=== PATIENT | female | born 1970 | race Caucasian/White ===

== ENCOUNTER 2018-08-28 09:14 | Emergency (ER) | payer OTHER, SELFPAY ==
[2018-08-28] VITALS (45 sets, daily range): BP systolic 95–133; BP diastolic 70–96; PULSE 45–69; RESP 0–22; TEMP 36.8; O2SAT 96–100
--- NOTE | 2018-08-28 09:25 | DI.RAD_ITS ---
SYMPTOM/DIAGNOSIS: CHEST PAIN, PALPITATIONS PA AND LATERAL CHEST: There are no prior comparison exams. The cardiac and mediastinal contours have a normal appearance. There is mild bi-apical pleural scarring. The lungs otherwise appear clear. No infiltrate, effusion or pneumothorax is seen. IMPRESSION: No acute abnormality.
[2018-08-28 09:35] LABS: Abs Immature Grans 0.01 k/cumm (0.0-0.09); Absolute Basophil Count 0.05 k/cumm (0.0-0.2); Absolute Eosinophil Count 0.24 k/cumm (0.0-0.7); Absolute Lymphocyte Count 1.53 k/cumm (1.2-3.4); Absolute Monocyte Count 0.47 k/cumm (0.11-0.7); Absolute Neutrophil Count 1.96 k/cumm (1.2-6.7); Basophils % 1.2; Eosinophils % 5.6; HCT 37.9 % (36.0-46.0); HGB 13.1 g/dL (12.0-15.5); Immature Grans % 0.2; Lymphocytes % 35.9; Mean Corp. HGB Concentration 34.6 g/dL (32.0-36.0); Mean Corpuscular Hemoglobin 33.4 pg (27.0-33.0); Mean Corpuscular Volume 96.7 fL (80-95); Mean Platelet Volume 8.7 fL (8.0-11.0); Neutrophils % 46.1; Platelet Count 359 x1000/uL (130-400); RBC 3.92 m/cumm (4.00-5.20); RBC Distribution Width 11.5 % (11.7-14.6); White Blood Cell Count 4.26 k/cumm (4.4-10.8)
[2018-08-28 09:52] LABS: ALT 27 U/L (12-78); AST 20 U/L (15-37); Albumin 3.8 g/dL (3.4-5.0); Alkaline Phosphatase 57 U/L (46-116); Anion Gap 9.4 mmol/L (3-11); BUN 16 mg/dL (7-18); Bilirubin, Total 0.6 mg/dL (0.2-1.0); CO2 25.6 mmol/L (21.0-32.0); CREATININE 0.91 mg/dL (0.55-1.02); Calcium 9.2 mg/dL (8.5-10.1); Chloride 100 mmol/L (98-107); Glucose 96 mg/dL (70-100); Magnesium 1.9 mg/dL (1.8-2.4); Potassium 4.2 mmol/L (3.5-5.1); Sodium 135 mmol/L (136-145); Total Protein 7.5 g/dL (6.4-8.2)
[2018-08-28 09:53] LABS: Troponin I < 0.02 ng/mL (0.00-0.06)
--- NOTE | 2018-08-28 10:16 | DI.VRAD_ITS ---
EXAM: XR Chest, 2 Views EXAM DATE/TIME: 08/28/2018 9:26 AM CLINICAL HISTORY: 48 years old, female; Signs and symptoms; Other: Palpitations TECHNIQUE: Imaging protocol: XR of the chest, 2 views. COMPARISON: No relevant prior studies available. FINDINGS: Lungs: Moderately hyperaerated lungs consistent with deep inspiratory effort vs significant reactive airway disease vs moderate COPD . Pleural space: Unremarkable. No pleural effusion. No pneumothorax. Heart/Mediastinum: Unremarkable. No cardiomegaly. Bones/joints: Unremarkable. IMPRESSION: Moderately hyperaerated lungs consistent with deep inspiratory effort vs significant reactive airway disease vs moderate COPD . Dictated and Authenticated by: Eliezer Pisano MD. Ordering:ALFREDO López MD
--- NOTE | 2018-08-28 10:22 | W.ED.GENAD ---
Discharge Plan Disposition Patient Disposition: HOME Condition: Good Discharge Details Chief Complaint: Palpitatns Clinical Impression: Palpitations, Atypical chest pain, Chronic chest pain Primary Care Provider: Caitlin,Local ED Provider: Maribel Contreras Home Meds and New Rx's Prescriptions: Continued propranolol 20 mg Tablet 20 mg PO DAILY RF: 0 norethindrone-e.estradiol-iron [Blisovi 24 Fe] 1 mg-20 mcg (24)/75 mg (4) Tablet 1 tab PO DAILY RF: 0 Discharge Instructions Instructions: Chest Pain (ED), Palpitations (ED), Chronic Pain (ED), Anxiety (ED) Additional Instructions: Your symptoms may or may not be due to anxiety. Your blood work and EKGs were reassuring that this does not appear like an acute cardiac etiology at this time. Return the zio patch monitor to the hospital as directed. Follow-up with your primary care doctor for reevaluation and for discussion regarding medication for possible anxiety. Also discuss with your doctor the plan for continuing propranolol or changing to a different medication for your hypertension. Hold on further propranolol if your heart rate is below 60. Take the ativan you were given to help with any further feelings of palpitations. Return immediately to the emergency department any worsening or new concerning symptoms. Discharge Data Discharge Physician: Maribel Contreras Medical Decision Making 48-year-old female with a history of hypertension on propranolol, and endometrial ablation who presents for palpitations, tachycardia, chest tightness and shortness of breath that awoke her from sleep at 330 this morning. She is visiting here from [place]. She traveled 3 hours yesterday. Her last dose of propranolol was 2 days ago as she forgot her pills at home. She denies leg pain or swelling, recent surgeries. Symptoms are much improved now, chest tightness 2/10. Vitals within normal limits. EKG notes a rate of 62, sinus, T wave inversion in lead III and V3. No acute ST findings. Differential diagnosis includes AR, PE, anxiety, electrolyte abnormality, arrhythmia. Considering patient's age and history, will do a cardiac workup, d-dimer, and chest x-ray and will give patient a dose of her propranolol now. Able to obtain records from [facility] from June 2018 which noted that patient had negative serial EKGs and negative cardiac enzymes in addition to a negative myocardial stress test on 06/16/18 which reported Impression: No definite scintigraphic evidence for stress-induced ischemia on orthogonal views. Ejection fraction calculated greater than 70%, within normal limits, with unremarkable wall motion on the gated study. Review of EKG from 06/16/18 notes T wave inversion in lead III and V3 which is seen in today's EKG so no new acute findings on today's EKG. 1115 --labs and imaging reviewed and unremarkable. D-dimer negative. Troponin negative. Chest x-ray negative for acute findings. Patient states she has been having this intermittent palpitations, chest tightness for the past 6 months. She states she has had similar episodes as this morning occurring more frequently over the past 2-3 months. Patient denies any relief with the propranolol. Will give a dose of Ativan. Discussed with patient that as her symptoms have been chronic, and she had a recent negative stress test, plan for second troponin with discharge home with zio patch may be most appropriate as she is agreeable. Will give a dose of Ativan p.o. now. 1315 --second troponin negative. Patient feels much better and denies any complaints of palpitations, chest tightness or shortness of breath. Patient is requesting to go home. Repeat EKG no acute change. The heart rate on repeat EKG was noted to be 49. Further monitoring of the heart rate noted to be in the high 50s. This is likely due to the dose of propranolol here. Patient had zio patch placed prior to discharge. Discussed with patient that her symptoms could possibly be due to anxiety, but she is recommended to follow-up with her primary care doctor for further evaluation of this. Patient requested 1 dose of propranolol for tomorrow night. She is instructed to hold this dose if her heart rate is less than 60. Will send home with 3 tabs of Ativan. She is instructed she is to call her primary care doctor on Thursday morning for reevaluation, and to return to the ER with any concerns. Medical Records Medical records reviewed: Yes I reviewed the patient's medical records. Imaging Data Radiologic Study: Radiologist's impression: XR Chest, 2 Views EXAM DATE/TIME: 08/28/2018 9:26 AM FINDINGS: Lungs: Moderately hyperaerated lungs consistent with deep inspiratory effort vs significant reactive airway disease vs moderate COPD . Pleural space: Unremarkable. No pleural effusion. No pneumothorax. Heart/Mediastinum: Unremarkable. No cardiomegaly. Bones/joints: Unremarkable. IMPRESSION: Moderately hyperaerated lungs consistent with deep inspiratory effort vs significant reactive airway disease vs moderate COPD . Lab Data Lab results reviewed: Yes I reviewed the patient's lab results. Laboratory Tests Range/Units 08/28/18 08/28/18 08/28/18 09:20 09:30 09:30 WBC (4.4-10.8) k/cumm 4.26 L RBC (4.00-5.20) m/cumm 3.92 L Hgb (12.0-15.5) g/dL 13.1 Hct (36.0-46.0) % 37.9 MCV (80-95) fL 96.7 H MCH (27.0-33.0) pg 33.4 H MCHC (32.0-36.0) g/dL 34.6 RDW (11.7-14.6) % 11.5 L Plt Count (130-400) x1000/uL 359 MPV (8.0-11.0) fL 8.7 Immature Gran % 0.2 Neutrophils % 46.1 Lymphocytes % 35.9 Monocytes % 11.0 Eosinophils % 5.6 Basophils % 1.2 Absolute Neutrophils (1.2-6.7) k/cumm 1.96 Absolute Lymphocytes (1.2-3.4) k/cumm 1.53 Absolute Monocytes (0.11-0.7) k/cumm 0.47 Absolute Eosinophils (0.0-0.7) k/cumm 0.24 Absolute Basophils (0.0-0.2) k/cumm 0.05 D-Dimer (<500) ng/mlFEU 154 Sodium (136-145) mmol/L 135 L Potassium (3.5-5.1) mmol/L 4.2 Chloride (98-107) mmol/L 100 Carbon Dioxide (21.0-32.0) mmol/L 25.6 Anion Gap (3-11) mmol/L 9.4 BUN (7-18) mg/dL 16 Creatinine (0.55-1.02) mg/dL 0.91 Estimated GFR/1.73 m2 (mL/min/1.73m2) >= 60.00 Glucose (70-100) mg/dL 96 Calcium (8.5-10.1) mg/dL 9.2 Magnesium (1.8-2.4) mg/dL 1.9 Total Bilirubin (0.2-1.0) mg/dL 0.6 AST (15-37) U/L 20 ALT (12-78) U/L 27 Alkaline Phosphatase (46-116) U/L 57 Troponin I (0.00-0.06) ng/mL < 0.02 Total Protein (6.4-8.2) g/dL 7.5 Albumin (3.4-5.0) g/dL 3.8 Range/Units 08/28/18 12:15 WBC (4.4-10.8) k/cumm RBC (4.00-5.20) m/cumm Hgb (12.0-15.5) g/dL Hct (36.0-46.0) % MCV (80-95) fL MCH (27.0-33.0) pg MCHC (32.0-36.0) g/dL RDW (11.7-14.6) % Plt Count (130-400) x1000/uL MPV (8.0-11.0) fL Immature Gran % Neutrophils % Lymphocytes % Monocytes % Eosinophils % Basophils % Absolute Neutrophils (1.2-6.7) k/cumm Absolute Lymphocytes (1.2-3.4) k/cumm Absolute Monocytes (0.11-0.7) k/cumm Absolute Eosinophils (0.0-0.7) k/cumm Absolute Basophils (0.0-0.2) k/cumm D-Dimer (<500) ng/mlFEU Sodium (136-145) mmol/L Potassium (3.5-5.1) mmol/L Chloride (98-107) mmol/L Carbon Dioxide (21.0-32.0) mmol/L Anion Gap (3-11) mmol/L BUN (7-18) mg/dL Creatinine (0.55-1.02) mg/dL Estimated GFR/1.73 m2 (mL/min/1.73m2) Glucose (70-100) mg/dL Calcium (8.5-10.1) mg/dL Magnesium (1.8-2.4) mg/dL Total Bilirubin (0.2-1.0) mg/dL AST (15-37) U/L ALT (12-78) U/L Alkaline Phosphatase (46-116) U/L Troponin I (0.00-0.06) ng/mL < 0.02 Total Protein (6.4-8.2) g/dL Albumin (3.4-5.0) g/dL ECG Data Attestation: I personally reviewed and interpreted this ECG (s) as follows: Interpretation: 0923: Rate of 62, sinus, T wave inversion in lead III, V3. No acute ST elevation or depression. QTc 441. QRS 86. 1224: Rate of 49, sinus, T wave inversion in lead III and V3. No acute ST elevation or depression. QTc 413. QRS 86. HPI General Mode of arrival: ambulatory. Date/Time Provider Initiated Documentation: 08/28/18 09:25. Limitations to Documentation: no limitations. Information obtained by: patient. HPI Narrative: Patient is a 48-year-old female with a history of endometriosis with endometrial ablation, hypertension, and possible history of anxiety who presents with palpitations, chest tightness, lightheadedness, and shortness of breath that awoke her from sleep at 330 this morning. Patient states the chest tightness is more intense than 6-7/10 but is now much improved at 2-3/10. When asked if she has stress she states doesn't everybody?. Patient states he had a similar episode for which she was seen in the emergency department in [facility] 2 months ago. She states she had a negative workup, was admitted and had a negative stress test. Patient states she has been eating and drinking normally and denies any known fever, nausea, vomiting. She denies any leg pain or swelling. She states she traveled 3 hours in a car from [place] yesterday. She denies any recent surgeries. She states she takes propranolol for her hypertension but forgot it at home and last took a dose 2 days ago. She states she is visiting here from [place] until tomorrow. Related Data Home Medications Medication Instructions Recorded Confirmed norethindrone-e.estradiol-iron 1 tab PO DAILY 08/28/18 08/28/18 [Blisovi 24 Fe] propranolol 20 mg PO DAILY 08/28/18 08/28/18 Allergies Allergy/AdvReac Type Severity Reaction Status Date / Time No Known Allergies Allergy Unverified 08/28/18 09:30 General Stated Complaint: Palpitatns JENNI: 2 Review of Systems Review of Systems All systems reviewed & are unremarkable except as noted in HPI and below Constitutional Reports as per HPI, Denies chills and Denies fever(s) Eyes Denies blurry vision ENT Denies dizziness, Denies sore throat and Denies throat swelling Cardiovascular Denies chest pain and Denies dyspnea Respiratory Denies cough and Denies dyspnea Gastrointestinal Denies abdominal pain, Denies diarrhea and Denies vomiting Genitourinary Denies hematuria and Denies dysuria Musculoskeletal Denies back pain and Denies numbness Integumentary/Breasts Denies lesions and Denies rash Neurologic Denies dizziness, Denies focal weakness and Denies numbness Allergic/Immunologic Denies throat swelling [facility] Medical History Endometriosis (Chronic) Hypertension (Chronic) Surgical History History of endometrial ablation (Acute) Social History Smoking/Tobacco Use Status: Former Tobacco Use Quit Date: 07/09/18 Alcohol Intake: current Alcohol Intake frequency: a few times a month Alcohol type: wine Substance use type: does not use Do you feel safe at home: Yes Do you feel safe in your relationship?: Yes Exam Const General: cooperative, healthy appearing and no acute distress HENMT Head: normal to inspection Face and sinus: normal facial exam Eyes General: appearance normal, both eyes and all related structures EOM: EOM intact bilaterally Neck Neck: normal visual inspection and No submandibular swelling Lymphatic: no lymphadenopathy noted Chest Chest: normal inspection of the chest, normal palpation of entire chest wall, no tenderness and No rash Resp Effort & Inspection: normal respiratory effort and able to speak in complete sentences Auscultation: clear to auscultation bilaterally Cardio Rate: regular rate Rhythm: regular rhythm GI Inspection: normal to inspection Palpation: soft, not firm, not rigid and nontender Auscultation: normal bowel sounds Skin General skin exam: no rashes or lesions noted Neuro General: alert, awake and oriented x3 Cognition: normal cognition Speech: speech normal Motor: muscle tone normal throughout Sensory Exam: no sensory deficits noted Extrem General: normal to inspection, full ROM, normal capillary refill, no calf tenderness bilaterally and no edema Psych Appearance: grossly normal Mental Status: mental status grossly normal Speech and Movement: speech and movement normal Affect: normal affect Course Vital Signs Respiratory Rate 18 08/28/18 09:16 Pulse Oximetry 100 08/28/18 09:16 Temperature 98.2 F 08/28/18 09:25 Temperature Source Temporal Artery Scan 08/28/18 09:25 Pulse 59 L 08/28/18 10:01 Pulse 58 L 08/28/18 10:01 Respiratory Rate 14 08/28/18 10:01 Respiratory Effort Non-Labored 08/28/18 09:28 Blood Pressure 116/89 08/28/18 10:01 Blood Pressure Mean 96 08/28/18 10:01 Blood Pressure Position Supine 08/28/18 09:25 Pulse Oximetry 99 08/28/18 10:01 Oxygen Delivery Method Room Air 08/28/18 09:25 Oxygen Flow Rate 0 08/28/18 09:25 Pain Level 6 08/28/18 09:38 Lab/Test Results Lab/Test Results: Laboratory Tests Range/Units 08/28/18 08/28/18 09:30 09:30 WBC (4.4-10.8) k/cumm 4.26 L RBC (4.00-5.20) m/cumm 3.92 L Hgb (12.0-15.5) g/dL 13.1 Hct (36.0-46.0) % 37.9 MCV (80-95) fL 96.7 H MCH (27.0-33.0) pg 33.4 H MCHC (32.0-36.0) g/dL 34.6 RDW (11.7-14.6) % 11.5 L Plt Count (130-400) x1000/uL 359 MPV (8.0-11.0) fL 8.7 Immature Gran % 0.2 Neutrophils % 46.1 Lymphocytes % 35.9 Monocytes % 11.0 Eosinophils % 5.6 Basophils % 1.2 Absolute Neutrophils (1.2-6.7) k/cumm 1.96 Absolute Lymphocytes (1.2-3.4) k/cumm 1.53 Absolute Monocytes (0.11-0.7) k/cumm 0.47 Absolute Eosinophils (0.0-0.7) k/cumm 0.24 Absolute Basophils (0.0-0.2) k/cumm 0.05 Sodium (136-145) mmol/L 135 L Potassium (3.5-5.1) mmol/L 4.2 Chloride (98-107) mmol/L 100 Carbon Dioxide (21.0-32.0) mmol/L 25.6 Anion Gap (3-11) mmol/L 9.4 BUN (7-18) mg/dL 16 Creatinine (0.55-1.02) mg/dL 0.91 Estimated GFR/1.73 m2 (mL/min/1.73m2) >= 60.00 Glucose (70-100) mg/dL 96 Calcium (8.5-10.1) mg/dL 9.2 Magnesium (1.8-2.4) mg/dL 1.9 Total Bilirubin (0.2-1.0) mg/dL 0.6 AST (15-37) U/L 20 ALT (12-78) U/L 27 Alkaline Phosphatase (46-116) U/L 57 Troponin I (0.00-0.06) ng/mL < 0.02 Total Protein (6.4-8.2) g/dL 7.5 Albumin (3.4-5.0) g/dL 3.8
--- NOTE | 2018-08-28 10:24 | NUR.NOTE ---
Nursing Note: [facility], [address] [place] [id number]. P [phone] F [phone]. Lavern Howard.
[2018-08-28] MEDS: Propranolol 20 MG TAB PO ×2 (10:49→14:11)
[2018-08-28 10:52] LABS: D-Dimer 154 ng/mlFEU (<500)
[2018-08-28] MEDS: LORazepam 1 MG TAB PO (11:56)
--- NOTE | 2018-08-28 12:01 | NUR.NOTE ---
Nursing Note: Assumed care of this patient. Pt awake and alert. no acute resp distress. denies chest pain. sinus tom on monitor. po ativan given as ordered. plan for repeat troponin. lights dimmed per patient request. will continue to monitor.
[2018-08-28 12:36] LABS: Troponin I < 0.02 ng/mL (0.00-0.06)
[2018-08-28] MEDS: LORazepam 0.5 MG TAB 1.5 MG PO (14:00)
--- NOTE | 2018-09-27 15:32 | ZIOP_ITS ---
DATE OF DICTATION: September 27, [address]: 14 days, August 28 - September 11, 2018 Baseline rhythm sinus. Rare single PAC. Sixteen bursts of SVT, longest 11.5 second duration, fastest 169 bpm. Rare single PVC, less than 1% of total beat. Rare couplet. Rare triplet. One burst of NSVT: 4-alejandro t duration at 179 bpm. No bradycardia or block. No symptoms. Seventeen triggered events. Events occurring during sinus rhythm +/- PAC, SVT, 60-85 bpm while in si nus rhythm, SVT up to 169 bpm. Average heart rate sinus 73 bpm, range 46-157 bpm.
== END 2018-08-28 14:03 | disposition home or self-care (01) ==
PROVIDERS: Emergency Provider Physician Assistant
DX: R00.2 Palpitations (principal); R07.89 Other chest pain; G89.29 Other chronic pain; I10 Essential (primary) hypertension
CPT/HCPCS: 0296T; 36415; 80053; 81025; 93005; 99285; 71046; 83735; 84484; 85025; 85379; 93010; 99284